=== PATIENT | male | born 1930 | race Caucasian/White ===

== ENCOUNTER 2018-10-04 12:25 | Outpatient (CLI) | payer MEDICARE, BC ==
[2018-10-04 14:18] LABS: MICROSCOPIC NOT IND
[2018-10-04 14:21] LABS: CULTURE INDICATED? NO
[2018-10-04 14:23] LABS: BASOPHILS # (AUTO) 0.04 x10^3/uL (0-0.1); BASOPHILS % (AUTO) 1 % (0-1); EOSINOPHILS # (AUTO) 0.23 x10^3/uL (0-0.4); EOSINOPHILS % (AUTO) 3 % (1-7); LYMPHOCYTES # (AUTO) 1.36 x10^3/uL (1-3.4); LYMPHOCYTES % (AUTO) 17 % (22-44); MD NO; MEAN CORPUSCULAR HEMOGLOBIN 33.9 pg (27.5-34.5); MEAN CORPUSCULAR VOLUME 102.6 fL (81-97); MEAN PLATELET VOLUME 9.2 fL (7.4-10.4); MONOCYTES % (AUTO) 12 % (2-9); NEUTROPHILS # (AUTO) 5.38 x10^3/uL (1.8-6.8); NEUTROPHILS % (AUTO) 67 % (42-75); PLATELET COUNT 214 x10^3/uL (130-400); RED BLOOD COUNT 4.74 x10^6/uL (4.38-5.82); RED CELL DISTRIBUTION WIDTH 14.7 % (9.4-14.8)
[2018-10-04 14:28] LABS: INTERNATIONAL NORMALIZED RATIO 4.66 (0.93-1.1); PROTHROMBIN TIME 46.1 Seconds (9.6-11.5)
[2018-10-04 14:30] LABS: ALANINE AMINOTRANSFERASE 30 U/L (12-78); ALBUMIN 3.5 g/dL (3.4-5.0); ANION GAP 7 mmol/L (5-15); CALCIUM 9.6 mg/dL (8.5-10.1); CHLORIDE 113 mmol/L (98-107); CREATININE 0.99 mg/dL (0.7-1.3)
[2018-10-04 14:32] LABS: ALKALINE PHOSPHATASE 113 U/L (45-117); BILIRUBIN,TOTAL 1.8 mg/dL (0.2-1.0); TOTAL PROTEIN 7.4 g/dL (6.4-8.2)
[2018-10-11] MEDS ORDERED: CARV3.122 PO (09:16)
[2018-10-11] MEDS ORDERED: LISI-170 PO (09:16)
[2018-10-11] MEDS ORDERED: TERI2.4P INJ (09:16)
[2018-10-11] MEDS ORDERED: UBID100C24 PO (10:30)
[2018-10-11] MEDS ORDERED: CALC500T93 PO (10:30)
[2018-10-11] MEDS ORDERED: GABA300C10 PO (10:30)
[2018-10-11] MEDS ORDERED: WARF2.5T32 PO (10:30)
[2018-10-11] MEDS ORDERED: WARF1TAB74 PO (10:30)
[2018-10-11] MEDS ORDERED: GLUC500T11 PO (10:30)
[2018-10-11] MEDS ORDERED: MULT1TAB60 PO (10:30)
[2018-10-16] MEDS ORDERED: ENOX40SY4 SQ (09:53)
[2018-10-16] MEDS ORDERED: SENN-31 PO (09:56)
[2018-10-16] MEDS ORDERED: ONDA4TAB7 IV (09:57)
[2018-10-16] MEDS ORDERED: METH750T2 PO (09:57)
[2018-10-16] MEDS ORDERED: TAMS-11 PO (09:58)
[2018-10-16] MEDS ORDERED: BETH10TA12 PO (09:58)
[2018-10-16] MEDS ORDERED: HYDR-3240 PO (09:59)
[2018-10-18] MEDS ORDERED: CYCL5TAB PO (09:41)
[2018-10-18] MEDS ORDERED: OXYC5CAP2 PO (09:41)
== END 2018-10-04 23:59 | disposition home or self-care (01) ==
LOC: STAR 12:25
PROVIDERS: ATTEND Neurological Surgery
DX: Z01.818 Encounter for other preprocedural examination (principal); M48.01 Spinal stenosis, occipito-atlanto-axial region; M51.36 Other intervertebral disc degeneration, lumbar region; R94.31 Abnormal electrocardiogram [ECG] [EKG]
CPT/HCPCS: 36415; 71046; 80053; 81003; 85025; 85610; 85730; 93005

== ENCOUNTER 2018-10-12 05:28 | Inpatient (IN) | payer MEDICARE, BC ==
[~2018-10-12] VITALS: Ht 172.7 cm; Wt 68.1 kg
[2018-10-18 13:34] VITALS: BP 141/80
== END 2018-10-18 13:52 | DRG 455 ==
LOC: ORIP 05:28 → EDSTATUS 07:00 → 4NOR 12:55
PROVIDERS: ADMIT Neurological Surgery; ATTEND Neurological Surgery
PROC: 0SG30K1 Fusion of Lumbosacral Joint with Nonautologous Tissue Substitute, Posterior Approach, Posterior Column, Open Approach (ICD-10-PCS; principal; 2018-10-12)
PROC: 0SG30A0 Fusion of Lumbosacral Joint with Interbody Fusion Device, Anterior Approach, Anterior Column, Open Approach (ICD-10-PCS; 2018-10-12)
PROC: 01NB0ZZ Release Lumbar Nerve, Open Approach (ICD-10-PCS; 2018-10-12)
PROC: 01NR0ZZ Release Sacral Nerve, Open Approach (ICD-10-PCS; 2018-10-12)
PROC: 4A11X4G Monitoring of Peripheral Nervous Electrical Activity, Intraoperative, External Approach (ICD-10-PCS; 2018-10-12)
DX: M47.26 Other spondylosis with radiculopathy, lumbar region (principal); M48.07 Spinal stenosis, lumbosacral region; I48.91 Unspecified atrial fibrillation; I12.9 Hypertensive chronic kidney disease with stage 1 through stage 4 chronic kidney disease, or unspecified chronic kidney disease; N18.9 Chronic kidney disease, unspecified; Z85.46 Personal history of malignant neoplasm of prostate; M21.371 Foot drop, right foot; Z86.73 Personal history of transient ischemic attack (TIA), and cerebral infarction without residual deficits; Z79.899 Other long term (current) drug therapy; M85.80 Other specified disorders of bone density and structure, unspecified site; I25.2 Old myocardial infarction
CPT/HCPCS: 36415; 70450; 71045; 72100; 74018; 80048; 81001; 85025; 85610; 85730; 86850; 86900; C1713; G0378; J0171; J0690; J1100; J1644; J1650; J1885; J2405; J2704; J2710; J3010; J3370; J3490; C1763; J0330; J2370; J3480; J7120

== ENCOUNTER → 2019-02-15 | Outpatient (CLI) | payer MEDICARE, BC ==
[~2019-02-15] VITALS: Ht 170.2 cm; Wt 67.7 kg
[~2019-02-15] MED LIST: BETH10TA12 PO; CALC500T93 PO; CARV3.122 PO; CYCL5TAB PO; ENOX40SY4 SQ; FLEC50TA25 PO; GABA300C10 PO; GLUC500T11 PO; HYDR-3240 PO; LISI-170 PO; METH750T2 PO; MULT1TAB60 PO; ONDA4TAB7 IV; OXYC5CAP2 PO; SENN-31 PO; TAMS-11 PO; TERI2.4P INJ; UBID100C24 PO; WARF1TAB74 PO; WARF2.5T32 PO; ZOLEDRONIC ACID 5MG/100ML 100 ML IV ONE
[2019-02-15 14:05] VITALS: BP 159/100
[2019-02-15 14:46] LABS: CALCIUM 9.3 mg/dL (8.5-10.1); CREATININE 1.07 mg/dL (0.7-1.3)
== END | disposition home or self-care (01) ==
LOC: INFUSION 13:21
PROVIDERS: ATTEND Nurse Practitioner
DX: M81.0 Age-related osteoporosis without current pathological fracture (principal); I12.9 Hypertensive chronic kidney disease with stage 1 through stage 4 chronic kidney disease, or unspecified chronic kidney disease; N18.9 Chronic kidney disease, unspecified; I25.2 Old myocardial infarction; I48.91 Unspecified atrial fibrillation; M48.07 Spinal stenosis, lumbosacral region; Z79.899 Other long term (current) drug therapy; Z85.46 Personal history of malignant neoplasm of prostate; Z86.73 Personal history of transient ischemic attack (TIA), and cerebral infarction without residual deficits
CPT/HCPCS: 36415; 36591; 82310; 82565; 96365; J3489